=== PATIENT | male | born 1995 | race Caucasian/White ===

== ENCOUNTER 2019-06-29 14:13 | Emergency (ER) | payer OTHER ==
[~2019-06-29] VITALS: Ht 180.3 cm; Wt 90.9 kg
[2019-06-29 14:23] VITALS: TEMP 98.4
[2019-06-29] MEDS ORDERED: CRUTCHES MC (15:09)
[2019-06-29] MEDS ORDERED: NORCO 325 MG-51 TAB PO (15:09)
[2019-06-29 15:52] VITALS: BP 123/78; PULSE 103
== END 2019-06-29 15:52 | disposition home or self-care (01) ==
LOC: COL.ER 14:13
DX: S82.302A Unspecified fracture of lower end of left tibia, initial encounter for closed fracture (principal); S82.832A Other fracture of upper and lower end of left fibula, initial encounter for closed fracture; X50.1XXA Overexertion from prolonged static or awkward postures, initial encounter; W00.0XXA Fall on same level due to ice and snow, initial encounter
CPT/HCPCS: J2405; J3010; Q4045

== ENCOUNTER 2019-06-30 10:33 | Emergency (ER) | payer OTHER ==
[~2019-06-30] VITALS: Ht 180.3 cm; Wt 90.9 kg
[~2019-06-30 10:33] MED LIST: CRUTCHES MC; NORCO 325 MG-51 TAB PO
[2019-06-30 11:00] VITALS: TEMP 97.8
[2019-06-30 12:35] VITALS: BP 128/83; PULSE 83
== END 2019-06-30 12:35 | disposition home or self-care (01) ==
LOC: COL.ER 10:33
DX: S82.892A Other fracture of left lower leg, initial encounter for closed fracture (principal); W00.0XXA Fall on same level due to ice and snow, initial encounter
CPT/HCPCS: J2704; J3010

== ENCOUNTER 2019-07-06 07:45 | Emergency (ER) | payer OTHER ==
[~2019-07-06] VITALS: Ht 180.3 cm; Wt 90.9 kg
[2019-07-06 07:59] VITALS: BP 152/88; TEMP 98.6
[2019-07-06] MEDS ORDERED: ROXICODONE 55 MG/TAB PO (09:16)
[2019-07-06 09:24] VITALS: PULSE 97
== END 2019-07-06 09:24 | disposition home or self-care (01) ==
LOC: COL.ER 07:45
DX: M25.572 Pain in left ankle and joints of left foot (principal); G89.18 Other acute postprocedural pain; Z87.891 Personal history of nicotine dependence
CPT/HCPCS: J1170; J2550